=== PATIENT | female | born 1965 | race Asian ===

== ENCOUNTER 2020-10-11 06:46 | Day surgery (SDC) | payer OTHER ==
[~2020-10-11] VITALS: Ht 157.5 cm; Wt 80.7 kg
[~2020-10-11 06:46] MED LIST: 0.9%NACL 1000ML 1,000 ML IV ONE; CALC-1125 PO; HYDR25TA PO; LEVO137T24 PO; LOSA25TA41 PO; VITAD50000 PO
[2020-10-11] MEDS ORDERED: PROPOFOL 10 MG/ML 20ML VIAL IV ONE ×2 (09:16)
[2020-10-11 09:40] VITALS: BP 88/44
[2020-10-11 09:45] VITALS: BP 95/58
[2020-10-11 09:50] VITALS: BP 98/59
[2020-10-11 10:10] VITALS: BP 106/50
[2020-10-11 10:20] VITALS: BP 108/54
== END 2020-10-11 10:20 | disposition home or self-care (01) ==
LOC: ENDO 06:46 → DAH 06:46 → ENDO 10:20
PROVIDERS: ATTEND Internal Medicine Gastroenterology
DX: Z12.11 Encounter for screening for malignant neoplasm of colon (principal); Z20.822 Contact with and (suspected) exposure to COVID-19; K21.00 Gastro-esophageal reflux disease with esophagitis, without bleeding; K31.89 Other diseases of stomach and duodenum; K22.70 Barrett's esophagus without dysplasia; I10 Essential (primary) hypertension; E03.9 Hypothyroidism, unspecified; Z86.010 Personal history of colon polyps; Z79.899 Other long term (current) drug therapy; Z79.890 Hormone replacement therapy; Z72.89 Other problems related to lifestyle
CPT/HCPCS: 43239; 45378; 87635; A4215 ×2; A4221; A4222; A4223; A4606; A4620; A4657; A4663; C9803; J2704; J7030

== ENCOUNTER 2020-10-12 05:34 | Day surgery (SDC) | payer OTHER ==
[~2020-10-12] VITALS: Ht 157.5 cm; Wt 80.7 kg
[~2020-10-12 05:34] MED LIST changes: -0.9%NACL 1000ML 1,000 ML IV ONE
[2020-10-12] MEDS ORDERED: 0.9%NACL 1000ML 1,000 ML IV ONE (06:13)
[2020-10-12 06:36] VITALS: BP 107/63
[2020-10-12] MEDS ORDERED: PROPOFOL 10 MG/ML 20ML VIAL IV ONE (06:53)
[2020-10-12] MEDS ORDERED: FENTANYL CITRATE PF 50 MCG/1 ML 2ML VIAL ONE (06:53)
[2020-10-12] MEDS ORDERED: LIDOCAINE PF 100MG/5ML (2%) SYRINGE 5ML ONE (06:55)
[2020-10-12] MEDS ORDERED: GLYCOPYRROLATE 1 MG/5 ML SYRINGE ONE (07:05)
[2020-10-12 07:22] VITALS: BP 105/65
[2020-10-12 07:28] VITALS: BP 116/55
[2020-10-12 07:33] VITALS: BP 116/56
[2020-10-12 07:40] VITALS: BP 111/65
[2020-10-12 07:45] VITALS: BP 114/59
== END 2020-10-12 08:00 | disposition home or self-care (01) ==
LOC: DAH 05:34
PROVIDERS: ATTEND Internal Medicine Gastroenterology
DX: Z12.11 Encounter for screening for malignant neoplasm of colon (principal); I10 Essential (primary) hypertension; K21.9 Gastro-esophageal reflux disease without esophagitis; E03.9 Hypothyroidism, unspecified; K22.70 Barrett's esophagus without dysplasia; Z86.010 Personal history of colon polyps; Z79.899 Other long term (current) drug therapy
CPT/HCPCS: 45378; A4215 ×2; A4221; A4223; A4606; A4620; A4657; A4663; J2001; J2704; J3010; J3490; J7030